=== PATIENT | male | born 1985 | race African-American/Black ===

== ENCOUNTER 2017-11-18 22:56 | Emergency (ER) | payer OTHER ==
[2017-11-19] MEDS ORDERED: Lidocaine 2% PF * 5 ML VIAL ONE (00:36)
--- NOTE | 2017-11-19 01:14 | ED ---
Pravin Tomas Rebecca, scribed for Monica Echeverria MD on 11/19/17 at 0042 . Upper Extremity Pain - HPI Summary HPI Summary: Pt is a 32 y/o M from [facility], accompanied by 2 corrections officers, who presents to ED c/o left pinky pain. At approximately 1999 he was playing basketball when the ball hit his pinky finger. Associated pain is currently severe, ranked 8/10. - History of Current Complaint Chief Complaint: EDExtremityUpper Stated Complaint: PINKY FINGER INJURY Time Seen by Provider: 11/19/17 00:32 Hx Obtained From: Patient Onset/Duration: Started Hours Ago - 1999, Still Present Severity Currently: Severe - 8/10 Pain Location: Finger - Left pinky Associated Signs & Symptoms: Positive: Negative - Allergies/Home Medications Allergies/Adverse Reactions: Allergies Allergy/AdvReac Type Severity Reaction Status Date / Time No Known Allergies Allergy Verified 11/18/17 23:07 PMH/Surg Hx/FS Hx/Imm Hx Endocrine/Hematology History: Denies: Hx Diabetes Cardiovascular History: Reports: Hx Hypertension Infectious Disease History: No Infectious Disease History: Denies: Traveled Outside the [place] in Last 30 Days - Family History Known Family History: Positive: Hypertension - Social History Alcohol Use: Rare Substance Use Type: Reports: None Smoking Status (MU): Light Every Day Tobacco Smoker Review of Systems Negative: Fever Positive: Other - Left pinky pain All Other Systems Reviewed And Are Negative: Yes Physical Exam - Summary Physical Exam Summary: VITAL SIGNS: Reviewed. GENERAL: ~Patient is a well-developed and nourished male who is lying comfortable in the stretcher. Patient is not in any acute respiratory distress. HEAD AND FACE: No signs of trauma. No ecchymosis, hematomas or skull depressions. No sinus tenderness. EYES: PERRLA, EOMI x 2, No injected conjunctiva, no nystagmus. EARS: Hearing grossly intact. Ear canals and tympanic membranes are within normal limits. MOUTH: Oropharynx within normal limits. NECK: Supple, trachea is midline, no adenopathy, no JVD, no carotid bruit, no c- spine tenderness, neck with full ROM. CHEST: Symmetric, no tenderness at palpation LUNGS: Clear to auscultation bilaterally. No wheezing or crackles. CVS: Regular rate and rhythm, S1 and S2 present, no murmurs or gallops appreciated. EXTREMITIES: No edema, no cyanosis or clubbing. Obvious deformity and pain in the left pinky finger. Neurovascularly intact. NEURO: Alert and oriented x 3. No acute neurological deficits. Speech is normal and follows commands. SKIN: Dry and warm Triage Information Reviewed: Yes Vital Signs On Initial Exam: Initial Vitals Temp Pulse Resp BP Pulse Ox 98.0 F 69 18 140/95 99 11/18/17 23:04 11/18/17 23:04 11/18/17 23:04 11/18/17 23:04 11/18/17 23:04 Vital Signs Reviewed: Yes Procedures - Joint Reduction Joint Reduction Site: other - Left 5th PIP Specify Other Joint Reduced: Left 5th PIP Conscious Sedation: No - Used digital block - lidocaine 2% Reduction Attempts: 1 - Volar splint applied Pre-Procedure NV Exam: Yes - NV intact both pre and post-reduction. Post Joint Reduction Film: joint reduced - Good alignment and no fracture Diagnostics - Vital Signs Vital Signs Temp Pulse Resp BP Pulse Ox 11/18/17 23:04 98.0 F 69 18 140/95 99 - Laboratory Lab Statement: Any lab studies that have been ordered have been reviewed, and results considered in the medical decision making process. - Radiology Hand XR Xray Interpretation: Positive (See Comments) - Dislocation at the 5th PIP joint. Pending official report. Radiology Interpretation Completed By: ED Physician Post-reduction Hand XR Radiology Interpretation Completed By: ED Physician - Good alignment and no fracture. Pending official report. Course/Dx - Course Assessment/Plan: Pt is a 32 y/o M from [facility], accompanied by 2 corrections officers, who presents to ED c/o left pinky pain. At approximately 2000 he was playing basketball when the ball hit his pinky finger. Associated pain is currently severe, ranked 8/10. Pre-reduction hand XR reveals a dislocation at the 5th PIP. Joint reduction of the left 5th PIP used a digital block (2% lidocaine), 1 reduction attempt and a volar splint applied after. Pre- and post-reduction NV exam were intact. Post-reduction XR shows good alignment and no fracture. Pt will be D/C with Dx of left little finger dislocation. He understands and agrees. - Diagnoses Provider Diagnoses: Dislocation of left little finger Discharge - Sign-Out/Discharge Documenting (check all that apply): Discharge/Admit/Transfer - Discharge - Discharge Plan Condition: Stable Disposition: HOME Patient Education Materials: Finger Dislocation (ED) Referrals: Staley Correcti, [Primary Care Provider] - 3 Days Additional Instructions: RETURN TO EMERGENCY DEPARTMENT FOR ANY RETURNING OR WORSENING SYMPTOMS. The documentation as recorded by the Pravin robison Rebecca accurately reflects the service I personally performed and the decisions made by , Monica Echeverria MD.
[2017-11-19 01:19] VITALS: BP 136/88
--- NOTE | 2017-11-19 07:53 | RAD ---
INDICATION: LEFT fifth finger pain and deformity following injury playing basketball. COMPARISON: No relevant prior exams available on the [facility] PACS for comparison. TECHNIQUE: Initial AP, lateral, and oblique views LEFT hand 0016 hours. Subsequent post relocation AP, lateral, and oblique views LEFT hand 0106 hours REPORT: Initial exam documents dorsal ulnar dislocation at the fifth proximal interphalangeal joint without visible fracture. Associated soft tissue swelling. No additional radiographic abnormality of the hand. Post relocation exam documents restored anatomic alignment at the fifth proximal interphalangeal joint. No fracture evident. Soft tissue swelling most prominent at the level of the fifth proximal interphalangeal joint. IMPRESSION: The postreduction exam demonstrates restored anatomic alignment at the fifth proximal interphalangeal joint. Negative for fracture.
--- NOTE | 2017-11-19 07:53 | RAD ---
INDICATION: LEFT fifth finger pain and deformity following injury playing basketball. COMPARISON: No relevant prior exams available on the [facility] PACS for comparison. TECHNIQUE: Initial AP, lateral, and oblique views LEFT hand 0016 hours. Subsequent post relocation AP, lateral, and oblique views LEFT hand 0106 hours REPORT: Initial exam documents dorsal ulnar dislocation at the fifth proximal interphalangeal joint without visible fracture. Associated soft tissue swelling. No additional radiographic abnormality of the hand. Post relocation exam documents restored anatomic alignment at the fifth proximal interphalangeal joint. No fracture evident. Soft tissue swelling most prominent at the level of the fifth proximal interphalangeal joint. IMPRESSION: The postreduction exam demonstrates restored anatomic alignment at the fifth proximal interphalangeal joint. Negative for fracture.
== END 2017-11-19 01:16 | disposition home or self-care (01) ==
LOC: ED 22:56
DX: S63.257A Unspecified dislocation of left little finger, initial encounter (principal); W21.05XA Struck by basketball, initial encounter; Y93.67 Activity, basketball; Y92.9 Unspecified place or not applicable; F17.210 Nicotine dependence, cigarettes, uncomplicated
CPT/HCPCS: 26670; 99282